=== PATIENT | male | born 1965 | race Caucasian/White ===

== ENCOUNTER 2018-07-26 05:02 | Emergency (ER) | payer OTHER, SELFPAY ==
[2018-07-26 05:03] VITALS: BP 140/84; PULSE 88; RESP 16; TEMP 36.4; O2SAT 97; BMI 25.8
--- NOTE | 2018-07-26 05:34 | ED.DEP ---
ED Disposition - Plan for ED Patient: Instructions: ED Foreign Body Cornea Referrals: Joann Best MD [STAFF PHYSICIAN] -
--- NOTE | 2018-07-26 06:08 | ED.DCSUM_ITS ---
- ER Visit Summary Date of Service: 07/26/18 Chief Complaint: Foreign body left eye History of Present Illness: The patient is a 52 M presenting with foreign body sensation left eye. This occurred on Tuesday while at work. Patient states he was drilling metal and felt something go into his eye. He felt that he may have also sustained a flash burn. He was wearing safety goggles. When the pain did not subside in the next 24 hours he then came to the ED for further evaluation. He wears glasses, no contacts. Complains of blurry vision left eye. Denies other complaints. Physical Examination: Vitals are stable. Patient is afebrile. Alert no acute distress. HEENT exam foreign body visualized at 3'oclock. Eyelids everted with no foreign body seen under eyelid. Neck is supple. Lungs are clear and equal bilaterally. Heart is regular rate and rhythm. Extremities are unremarkable. Skin is warm and dry. Remainder of exam is unremarkable. Emergency Department Course and Treatment: Visual acuity 20/20 OD, 20/40 OS. Tetracaine was instilled into the left eye with improvement of his pain. Attempted foreign body removal with cotton swab and eye annie. Foreign body was partially removed. Discussed with Dr. Best, she will evaluate him this morning in her office. Patient will go directly to her office. Disposition: Discharge Impression: Foreign body left eye This note was generated with [employer] dictation software. It may contain incorrect words, spelling, and punctuation that were not noted in review of the chart prior to signing ED Disposition - Plan for ED Patient: Instructions: ED Foreign Body Cornea Referrals: Joann Best MD [STAFF PHYSICIAN] -
[2018-07-26] MEDS: Tetracaine 0.5% Ophthalmic Bottle 1 DRP LEFT EYE (06:18)
[2018-07-26] MEDS: Fluorescein 1 MG STRIP 1 STRIP LEFT EYE (06:19)
[2018-07-26 06:20] VITALS: RESP 18
== END 2018-07-26 06:21 | disposition home or self-care (01) ==
PROVIDERS: Emergency Provider Emergency Medicine; Family Provider Family Medicine; PCP Family Medicine
DX: T15.92XA Foreign body on external eye, part unspecified, left eye, initial encounter (principal); Z72.0 Tobacco use
CPT/HCPCS: 99283

== ENCOUNTER 2024-08-29 08:34 | Emergency (ER) | payer BC, SELFPAY ==
[2024-08-29 08:35] VITALS: BP 126/85; PULSE 75; RESP 16; TEMP 35.9; O2SAT 98; BMI 27.6
--- NOTE | 2024-08-29 08:54 | EX.ED.DYSGE1 ---
HPI History of Present Illness Chief Complaint: Dizziness Detail of Chief Complaint: Vertigo Informant: patient Narrative Narrative: Patient presents to the emergency department complaint of dizziness/vertigo. Patient states that he was sitting drinking coffee when he had sudden onset of spinning sensation. He complains of nausea and feeling like he is off balance. He had similar episode years ago. He denies falls or head injuries. He denies recent illness. He is not anticoagulated. Denies headache. Denies blood in the stool or black tarry stool. PFSH [facility] Medical History (Updated 08/29/24 @ 10:[address] Elena Novoa, DO) Acute sinusitis, unspecified Acute bronchitis, unspecified Home Medications ?Medication ?Instructions ?Recorded ?Last Taken ?Type acetaminophen 500 mg tablet 500 mg PO Q6H PRN fever or pain 08/29/24 08/26/24 History (Acetaminophen Extra Strength) fenofibrate nanocrystallized 145 145 mg PO DAILY 08/29/24 08/29/24 History mg tablet fexofenadine 180 mg tablet 180 mg PO DAILY PRN allergies 08/29/24 08/16/24 History ibuprofen 200 mg tablet (Addaprin) 800 mg PO Q8H PRN fever or pain 08/29/24 Unknown History meclizine 25 mg chewable tablet 25 mg PO TID #20 tabs 08/29/24 Unknown Rx (Antivert) ondansetron 4 mg disintegrating 4 mg PO Q8H PRN PRN Nausea #10 tabs 08/29/24 Unknown Rx tablet pantoprazole 40 mg tablet,delayed 40 mg PO DAILY 08/29/24 08/28/24 History release Allergy/AdvReac Type Severity Reaction Status Date / Time morphine AdvReac Hives Verified 08/29/24 08:37 Family History (Updated 11/29/20 @ 08:42 by Nika Amaya) Mother Cancer Surgical History (Updated 11/29/20 @ 08:42 by Nika Amaya) History of cholecystectomy Social History Smoking Status: Former smoker ROS ROS ED Review of Systems ROS Unobtainable: other Constitutional Constitutional ED: Reports lethargy; Denies chills, fever(s), sweats or weight loss Eyes Eyes: Denies blurry vision, change in vision or diplopia ENT ENT ED: Denies rhinorrhea or sore throat Cardiovascular Cardiovascular: Denies chest pain, orthopnea or racing heartbeat Respiratory/Chest Respiratory/Chest: Denies cough, dyspnea, dyspnea on exertion, orthopnea or sputum Gastrointestinal Gastrointestinal: Denies abdominal pain, diarrhea, nausea or vomiting Genitourinary Genitourinary ED: Denies dysuria, hematuria or urinary frequency Musculoskeletal Musculoskeletal: Denies arthralgias, back pain, myalgias or neck pain Integumentary Denies abscess, Abrasions or rash Neurologic Neurologic: Reports other Details: Dizziness ; Denies headache(s) or weakness Psychiatric Psychiatric: Denies anxiety, depression or suicidal thoughts Endocrine Endocrinology: Denies polydipsia, polyphagia or polyuria Hematologic/Lymphatic Hematologic/Lymphatic: Denies easy bleeding, easy bruising or lymphadenopathy Allergic/Immunologic Allergic/Immunologic ED: Denies mouth swelling, tongue swelling or urticaria EXAM Physical Exam Const Vital Signs: 08/29/24 08:35 Temperature 96.6 F L Temperature Source Temporal Pulse Rate 75 Respiratory Rate 16 Blood Pressure 126/85 H Blood Pressure Mean 98 Pulse Ox 98 Oxygen Delivery Method Room Air Positive well nourished and well developed General Appearance ED: well developed and NAD HEENT Reports TM's clear and moist mucous membranes normocephalic and atraumatic; Negative for trauma or tenderness Tympanic Membrane ED: Yes TM's clear Eyes PERRL and EOMs intact bilaterally General Eye ED: Negative for pale conjunctiva or scleral icterus Neck no lymphadenopathy, supple and no JVD General: Negative for tenderness Chest Wall inspection of chest normal and palpation of chest normal Chest: Negative for tenderness Resp normal respiratory effort and clear to auscultation bilaterally Effort and Inspection: Negative for respiratory distress or pain with movement Auscultation: Negative for rhonchi, wheezes or diminished lung sounds Cardio regular rate, regular rhythm, S1 normal heart sound, S2 normal heart sound and no murmurs Peripheral Pulses: pulses 2+ throughout GI normal to inspection, nondistended, normoactive bowel sounds, soft to palpation, non-tender, non-distended and no masses Back/Spine no CVA tenderness and no thoracic nor lumbar tenderness Extremity normal to inspection General Extremety ED: Negative for edema General Extremity: Negative for edema Neuro oriented x3, CN's II-XII intact bilaterally, no sensory deficits noted and gait normal Neuro Narrative: Finger-nose and heel shepard testing within normal limits, negative Romberg, negative pronator drift. Hallpike maneuver performed was positive with head turn to the right he had nystagmus that fatigued. Patient felt very nauseated with head position to the right. Sensorium / Orientation: awake, alert, oriented to person, oriented to place and oriented to time Motor Exam: strength 5/5 throughout and strength abnormal Psych mental status grossly normal Skin no rashes or lesions noted and no wounds MDM MDM MDM Narrative Medical decision making narrative: Patient presents to the emergency department with complaint of vertigo symptoms sudden onset with nausea. Clinically he looks well. Exam and history consistent with benign positional vertigo. Positive Hallpike maneuver. En maneuver performed. Patient will be given Antivert and Zofran p.o. and will be observed in the department and will be reevaluated in an hour. Patient reevaluated after an hour and he is feeling markedly improved. He was able to ambulate without difficulty in the department after treatment. He will be discharged to home with a prescription for Antivert and Zofran. Advised to follow-up with his primary care physician within next 3 to 5 days. Vies to return if persistent symptoms with difficulty ambulating, vomiting, or condition should worsen anyway. Discharge Plan Triage Chief Complaint: Dizziness ED Provider: Elena Novoa Dx/Rx/DC Orders Clinical Impression: Benign positional vertigo Instructions: ED BPV Vertigo Prescriptions: New meclizine [Antivert] 25 mg tablet,chewable 25 mg PO TID Qty: 20 0RF ondansetron 4 mg tablet,disintegrating 4 mg PO Q8H PRN PRN (Reason: Nausea) Qty: 10 0RF No Action pantoprazole 40 mg tablet,delayed release (DR/EC) 40 mg PO DAILY Patient Comments: PT TAKES AT 3PM fenofibrate nanocrystallized 145 mg tablet 145 mg PO DAILY fexofenadine 180 mg tablet 180 mg PO DAILY PRN (Reason: allergies) Patient Comments: PT DID NOT LIKE THIS MEDICATION, ONLY TOOK ONCE acetaminophen [Acetaminophen Extra Strength] 500 mg tablet 500 mg PO Q6H PRN (Reason: fever or pain) ibuprofen [Addaprin] 200 mg tablet 800 mg PO Q8H PRN (Reason: fever or pain) Primary Care Provider: Saurabh Dunn Referrals: Mona,Saurabh, MD [Primary Care Provider] - 3-5 Days Print Language: Fijian Disposition Disposition: Home, Self Care
[2024-08-29] MEDS: Meclizine HCl 25 MG Tablet PO (09:03)
[2024-08-29] MEDS: Ondansetron ODT 4 MG Tablet PO (09:04)
[2024-08-29 11:12] VITALS: BP 132/84; PULSE 70; RESP 21; TEMP 36.1; O2SAT 98
== END 2024-08-29 11:13 | disposition home or self-care (01) ==
PROVIDERS: Emergency Provider Emergency Medicine; PCP Family Medicine; Visit Provider Emergency Medicine
DX: H81.10 Benign paroxysmal vertigo, unspecified ear (principal); Z79.899 Other long term (current) drug therapy; Z87.891 Personal history of nicotine dependence
CPT/HCPCS: 99283